=== PATIENT | male | born 1995 | race Caucasian/White ===

== ENCOUNTER 2018-08-20 12:19 | Emergency (ER) | payer MEDICAID ==
[~2018-08-20] VITALS: Ht 188 cm; Wt 80.7 kg
== END 2018-08-20 13:58 | disposition home or self-care (01) ==
LOC: ER 12:19
DX: S06.9X0A Unspecified intracranial injury without loss of consciousness, initial encounter (principal); S76.012A Strain of muscle, fascia and tendon of left hip, initial encounter; S20.229A Contusion of unspecified back wall of thorax, initial encounter; X58.XXXA Exposure to other specified factors, initial encounter; Y09 Assault by unspecified means
CPT/HCPCS: 70450; 70486; 99284-25

== ENCOUNTER → 2022-11-25 | Outpatient (CLI) | payer OTHER ==
[2022-11-25 12:34] LABS: BASOPHILS ABSOLUTE AUTO 0.08 K/mm3 (0.00-0.23); BASOPHILS PERCENT AUTO 1 % (0-2); EOSINOPHILS ABSOLUTE AUTO 0.17 K/mm3 (0.00-0.68); EOSINOPHILS PERCENT AUTO 2 % (0-6); Hematocrit 47.6 % (37.0-53.0); Hemoglobin 16.2 g/dL (13.5-17.5); IMMATURE GRAN ABSOLUTE AUTO 0.01 K/mm3 (0.00-0.10); IMMATURE GRAN PERCENT AUTO 0 % (0-1); LYMPHOCYTES ABSOLUTE AUTO 1.89 K/mm3 (0.84-5.20); LYMPHOCYTES PERCENT AUTO 26 % (21-46); MONOCYTES ABSOLUTE AUTO 0.59 K/mm3 (0.16-1.47); MONOCYTES PERCENT AUTO 8 % (4-13); Mean Corpuscular HGB 30.2 pg (26.0-34.0); Mean Corpuscular Volume 89 fL (80-100); Mean Platelet Volume 10.1 fL (9.1-12.4); NEUTROPHILS ABSOLUTE AUTO 4.47 K/mm3 (1.96-9.15); NEUTROPHILS PERCENT AUTO 62 % (41-73); Platelet Count 327 K/mm3 (150-400); RDW Coefficient Variation 11.9 % (11.7-14.2); RDW Standard Deviation 38.5 fL (35.1-46.3); Red Blood Cell Count 5.36 M/mm3 (4.30-5.90); White Blood Cell Count 7.21 K/mm3 (4.00-11.30)
[2022-11-25 13:46] LABS: Albumin, Blood 4.4 g/dL (3.4-5.0); Albumin/Globulin Ratio 1.1 (0.8-1.8); Bilirubin, Total 1.1 mg/dL (0.1-1.0); Bun/Creatinine Ratio 13.6 (12.0-20.0); Calcium, Blood 9.4 mg/dL (8.5-10.1); Creatinine, Blood 0.96 mg/dL (0.60-1.20); Potassium, Blood 4.3 mmol/L (3.5-5.5); Total Protein, Blood 8.4 g/dL (6.4-8.2)
== END ==
LOC: LAB 11:31 → LAB SHORT 11:31
PROVIDERS: Family Medicine
DX: R11.10 Vomiting, unspecified (principal)
CPT/HCPCS: 80053; 83690; 85025